=== PATIENT | female | born 1945 | race Caucasian/White ===

== ENCOUNTER → 2017-10-28 | Outpatient (CLI) | payer MEDICARE, OTHER | END | disposition home or self-care (01) | LOC: GMAB 15:09 | PROVIDERS: ATTEND Family Medicine | DX: Z79.899 Other long term (current) drug therapy (principal) ==

== ENCOUNTER → 2017-10-29 | Outpatient (CLI) | payer MEDICARE, OTHER | END | disposition home or self-care (01) | LOC: GMAB 14:31 | PROVIDERS: ATTEND Family Medicine | DX: R30.0 Dysuria (principal) ==

== ENCOUNTER → 2017-12-23 | Outpatient (CLI) | payer MEDICARE, OTHER ==
--- NOTE | 2017-12-23 20:58 | US ---
EXAM DESCRIPTION: Carotid Duplex: ULTRASOUND. CLINICAL HISTORY: OCCLUSION OF BILATERAL CAROTID ARTERIES COMPARISON: None. TECHNIQUE: Transcutaneous scanning utilizing 2-dimensional and Doppler modes to evaluate the bilateral carotid systems and vertebral arteries. Percentage of diameter of stenosis or no stenosis recorded will be based upon NASCET criteria. FINDINGS: Peak systolic/end diastolic (CM-Sec) CCA Right 81/10 Left 92/22. ICA Right proximal 42/12, distal 59/19. Left proximal DIET SUPERVISOR/19, Distal 65/20. Vertebral Right 51/9 Left 41/9. ECA (PS Only) Right tab left [xx]. . ICA/CCA peak systolic ratio: Right 0.7 Left 0.7 ICA/CCA end diastolic ratio: Right 1.8 Left 0.9 Vertebral arteries: antegrade flow. Comments: Atherosclerotic calcification bilateral common carotid bifurcations. Area stenosis in the left common carotid bulb is 30%. Diameter stenosis is 50%. Spectral broadening in the distal left ICA. Area stenosis in the right common carotid bulb is 20%. Diameter stenosis is 35%. Spectral broadening in the distal right ICA and the right vertebral artery. IMPRESSION: 1. Doppler evaluation of the bilateral carotid systems and vertebral arteries shows no hemodynamically significant stenoses. 2. No significant amount of plaque seen in the carotid arteries bilaterally. Bilateral vertebral arteries showed antegrade-cephalad flow. Electronically signed by: Napoleon Frausto MD 12/23/2017 8:57 PM [employer]
== END | disposition home or self-care (01) ==
LOC: US 10:00
PROVIDERS: ATTEND Family Medicine
DX: I65.23 Occlusion and stenosis of bilateral carotid arteries (principal)

== ENCOUNTER → 2018-12-10 | Outpatient (CLI) | payer MEDICARE, OTHER | LOC: GMAE 11:46 | PROVIDERS: ATTEND Family Medicine | DX: I10 Essential (primary) hypertension (principal) ==

== ENCOUNTER → 2020-10-13 | Outpatient (CLI) | payer MEDICARE, OTHER | LOC: GMAE 10:47 | PROVIDERS: ATTEND Family Medicine | DX: N30.00 Acute cystitis without hematuria (principal) ==

== ENCOUNTER → 2020-10-20 | Outpatient (CLI) | payer MEDICARE, OTHER ==
--- NOTE | 2020-10-21 20:23 | US ---
EXAM DESCRIPTION: Soft Tissue,Extremity: ULTRASOUND. CLINICAL HISTORY: 75 years Female LOCALIZED SWELLING,MASS AND LUMP. RIGHT FOREARM. COMPARISON: None Available. TECHNIQUE: Transcutaneous scanning: Silva-scale and Doppler modes. FINDINGS: Scanning of the right forearm where mass is palpable. Minimally encapsulated, mass measuring 1.9 x 2.0 x 0.6 cm and isoechoic to the subcutaneous adipose tissue. No vascularity. No cyst or fluid collection or calcification. IMPRESSION: 2 cm lipoma corresponding to palpable mass right forearm. No complications. Electronically signed by: Napoleon Frausto MD 10/21/2020 8:21 PM [facility]
== END ==
LOC: US 10:00
PROVIDERS: ATTEND Family Medicine
DX: D17.21 Benign lipomatous neoplasm of skin and subcutaneous tissue of right arm (principal)